=== PATIENT | female | born 1940 | race Caucasian/White ===

== ENCOUNTER 2020-03-31 16:08 | Inpatient (IN) | payer OTHER ==
[~2020-03-31] VITALS: Ht 170.2 cm; Wt 39.2 kg
--- NOTE | ~2020-03-31 | HC ---
[facility] [place] [address] CONSULTATION Name: LORELEI EVANS Room #: 446-P ADM IN M.R.#: [id number] Admission: 03/31/20 Attend Phys: Manfred Olson MD Discharge: Date of : 39 Report #: [id number] THIS REPORT FOR: cc: NORBERT - No family physician/PCP NORBERT - No family physician/PCP Ankush Coppola MD ~ CC: [facility] physician/PCP Manfred Olson DATE OF SERVICE: 04/02/2020 HISTORY OF PRESENT ILLNESS: The patient is an 80-year-old white female admitted through the Emergency Department with nausea, vomiting, was noted to have acute renal insufficiency with dehydration, failure to thrive. She had electrolyte abnormalities. Her nausea and vomiting are improved with antiemetic therapy. She was noted to have severe protein-calorie malnutrition. Geriatrics is involved. She does have premorbid dementia, but living in the community. She also has osteoporosis, insomnia. We are seeing her in rehabilitation medicine consultation. PAST MEDICAL HISTORY: Includes hypertension, hyperlipidemia, dementia, breast cancer. PAST SURGICAL HISTORY: Mastectomy. MEDICATIONS: Please see the full medication listing. FAMILY HISTORY: Unobtainable. Her code status is full. SOCIAL HISTORY: Lives with her cousin Krysten who is also durable power of assistant attorney general. This is a split level house 6+6 steps in. Premorbidly ambulated without gait aids and was independent with ADLs. REVIEW OF SYSTEMS: Denies any current complaints of chest pain, shortness of breath or abdominal discomfort. She notes that she is feeling better. Denies any current nausea or vomiting. PHYSICAL EXAMINATION: GENERAL: She is an 80-year-old thin white female in no obvious distress. VITAL SIGNS: Temperature 36.8, pulse 77, respirations 18, blood pressure 121/56. NEUROLOGIC: She is alert. She will follow basic 1 step commands without difficulty. Fair historian, but cooperative. HEENT: Facies are symmetric. [facility] [address] [place] [address] CONSULTATION Name: LORELEI EVANS Room #: 446-P ADM IN M.R.#: [id number] Admission: 03/31/20 Attend Phys: Manfred Olson MD Discharge: Date of : 39 Report #: [id number] EXTREMITIES: Functional range of motion of both upper extremities with strength grade 4-/5. DTRs are trace to 1. Lower extremities, no focal calf swelling, functional range of motion with strength grade 4-/5. DTRs are trace to 1. She is min assist with sit to stand. Gait was 200 feet min assist without an assistive device. She needs min assist for toileting, lower extremity dressing is min assist. ASSESSMENT: An 80-year-old white female with the following problem list: 1. Medical complexity with generalized debilitation. 2. Intractable nausea and vomiting. 3. Acute renal insufficiency secondary to dehydration, given IV fluids. 4. Severe protein-calorie malnutrition. 5. Failure to thrive. 6. Hypertension. 7. Hyperlipidemia. 8. Insomnia. 9. Depression. PLAN: The patient is being monitored regarding her renal insufficiency. She did have a significant increase in her creatinine, which has improved. She may be a candidate for a short acute in-hospital inpatient rehabilitation stay. We will check on bed availability and we will be glad to follow along with you. By: 1305 1833 Ankush Coppola MD /PMT
[~2020-03-31 16:08] MED LIST: AMLODIPINE BESYL5 MG PO; ULTRAM 50MG TAB50 MG PO
[2020-03-31 18:26] LABS: ABSOLUTE NEUTROPHILS 9.4 thou/uL (1.4-8.2); BASOPHILS 0.3 % (0.0-2.0); HEMATOCRIT 48.9 % (37.0-47.0); HEMOGLOBIN 16.7 gm/dL (12.0-15.0); MCH 32.3 pg (26.0-34.0); MCHC 34.2 g/dL (28.0-37.0); MCV 94.5 fL (80.0-100.0); MONOCYTES 3.8 % (1.0-8.0); PLATELET COUNT 390 thou/uL (150-400); POLYS 90.9 % (36.0-66.0); RBC 5.18 mil/uL (4.20-5.00); RDW 14.2 % (10.5-14.5); WBC 10.3 thou/uL (4.0-11.0)
[2020-03-31 18:34] LABS: CALCIUM 9.5 mg/dL (8.5-10.1); CREATININE 2.2 mg/dL (0.6-1.0)
[2020-03-31 18:42] LABS: ALBUMIN 4.8 g/dL (3.4-5.0); TOTAL BILIRUBIN 0.8 mg/dL (0.2-1.0)
[2020-03-31 19:29] LABS: URINE BILIRUBIN NEGATIVE (Negative); URINE BLOOD TRACE (Negative); URINE CLARITY CLEAR; URINE COLOR YELLOW; URINE GLUCOSE-RANDOM* TRACE (Negative); URINE KETONES NEGATIVE (Negative); URINE LEUKOCYTES-REFLEX NEGATIVE (Negative); URINE NITRITE-REFLEX NEGATIVE (Negative); URINE PROTEIN (DIPSTICK) 2+ (Negative); URINE UROBILINOGEN 0.2 E.U./dl (0.2-1.0)
[2020-03-31 19:49] LABS: BACTERIA-REFLEX 1-9 Few /HPF (None Seen); CASTS None Seen /LPF (None Seen); CRYSTALS None Seen /LPF (None Seen); SQUAMOUS 0-3 Few /LPF (0-3); URINE RBC None Seen /HPF (0-2); URINE WBC-REFLEX 0-5 Rare /HPF (0-5)
[2020-03-31 21:18] VITALS: BP 160/76
[2020-03-31 21:25] VITALS: BP 154/86
--- NOTE | 2020-03-31 21:29 | NUR ---
NOTIFIED PT IS COMING UP FOR BEDSIDE REPORT. 443 BEING CLEANED. WILL PUT PATIENT IN ROOM 447.
[2020-03-31 22:50] VITALS: BP 155/76
--- NOTE | 2020-03-31 23:55 | NUR ---
PT ARRIVED TO THE UNIT AT AROUND 2130 HRS. PT IS ALERT TO SELF. NOT MUCH OF A HISTORIAN AT ALL. PT WAS ABLE TO TELL ME SHE IS HERE BECAUSE SHE HAS LOST ALOT OF WEIGHT AND THE LADY ACROSS FROM HER HOUSE BROUGHT HER TO THE HOSPITAL.AFEBRILE. IVF INFUSING. SHE AGREES TO THE USE OF JE LIGHT. CLEARLY FORGETFUL. FALL PREC IN PLACE. WILL CALL FAMILY IN THE MORNING TO GET CONSENTS SIGNED. PT STATES SHE LIVES WITH HER SISTER IN[place]. SKIN IS INTACT. SHE REPORTS BEING CONTINENT OF BOWEL AND BLADDER. PT IS WELL KEMPT.WILL CONTINUE WITH POC TILL EOS.
[2020-04-01 05:00] VITALS: BP 156/74
[2020-04-01 05:59] LABS: HEMATOCRIT 44.2 % (37.0-47.0); MCH 32.4 pg (26.0-34.0); MCV 95.1 fL (80.0-100.0); RBC 4.65 mil/uL (4.20-5.00); RDW 13.8 % (10.5-14.5)
[2020-04-01 06:15] LABS: CALCIUM 8.8 mg/dL (8.5-10.1); CREATININE 1.4 mg/dL (0.6-1.0); MAGNESIUM 1.9 mg/dL (1.8-2.4)
[2020-04-01 07:45] VITALS: BP 143/72
--- NOTE | 2020-04-01 09:31 | EKG ---
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
--- NOTE | 2020-04-01 10:09 | NUR ---
ASSESSMENT: CM REVIEWED CHART AND ATTEMPTED TO CALL PATIENT IN THE ROOM BUT NO ANSWER. CM REACHED OUT TO JANUARY WHO IS LISTED HER CONTACT. JANUARY REPORTS SHE IS HER COUSIN/DPOA. PT LIVES IN A HOUSE WITH SILVIA. PT WAS ADMITTED DUE TO ANGEL/NAUSEA AND VOMITTING. JANUARY REPORTS THAT THEY HAVE A SPLIT LEVEL HOME WHERE THERE IS ABOUT 6 STEPS TO ENTER THROUGH THE GARAGE, 6 TO THE MAIN LEVEL, AND 6 TO THE BEDROOM. PT NORMALLY AMBULATES INDEPENDENTLY BUT SHE REPORTS THEY DO HAVE CANE AND WALKER AT HOME. PT NORMALLY IS INDEPENDENT WITH ADLS. PER JANUARY PT HAS NOT HAD HH IN THE PAST OR BEEN TO A SNF AND IS NORMALLY VERY INDEPENDENT. PT/OT WILL NEED TO SEE PATIENT AND CM WILL CONTINUE TO FOLLOW TO ASSIST NEEDED.
--- NOTE | 2020-04-01 15:37 | NUR ---
Assumed care of pt at 0700. Pt feeling weak this am. Talked to patient's family and updated on patient's status. Poor appetite. Swallow study ordered. Fluids infusing. Fall precautions in place. Will continue to monitor.
[2020-04-01 16:45] VITALS: BP 137/74
[2020-04-01 22:00] VITALS: BP 138/76
--- NOTE | 2020-04-02 03:12 | NUR ---
Care of patient assumed at 1915. Patient is sitting in recliner in her room watching TV. Pleasant and conversational. IV site intact and fluids infusing. Denies pain. Denies needs or concerns.
[2020-04-02 08:51] LABS: ALBUMIN 3.1 g/dL (3.4-5.0); CALCIUM 8.4 mg/dL (8.5-10.1); CREATININE 1.2 mg/dL (0.6-1.0); POTASSIUM 3.7 mmol/L (3.5-5.1); TOTAL BILIRUBIN 0.6 mg/dL (0.2-1.0)
[2020-04-02 11:33] VITALS: BP 121/56
--- NOTE | 2020-04-02 14:24 | NUR ---
PATIENT SEEN FOR REHAB CONSULT BY DR. CONRAD THIS DATE. PATIENT IS A CANDIDATE FOR ACUTE REHAB. FORENSIC PHOTOGRAPHER INFORMED AND WILL SPEAK WITH PATIENT'S FAMILY TO CONFIRM THEIR WISHES. PATIENT MAY BE READY FOR ADMISSION TO REHAB EARLY 04/02/20.
--- NOTE | 2020-04-02 16:03 | NUR ---
ON-GOING ASSESSMENT: CM REVIEWED CHART AND SPOKE WITH ATTENDING. 5N CONSULT WAS PLACED FOR PATIENT AND LIASON STATING PATIENT IS A GOOD CANIDATE IF AGREEABLE. CM ATTEMPTED TO REACH OUT TO PATIENT BUT NO ANSWER AT THIS TIME. CM REACHED OUT TO PATIENTS DP/JANUARY WHO REPORTS SHE IS NOT SURE THAT PATIENT NEEDS IT BUT WILL DISCUSS. CM DISCUSSED THAT PT/OT SAW PATIENT AND SHE WAS EVALUATED AND QUALIFIES IF THEY ARE WILLING. CM WILL CONTINUE TO FOLLOW.
[2020-04-02 19:45] VITALS: BP 123/65
--- NOTE | 2020-04-02 19:53 | NUR ---
PT CARE ASSUMED AT 0700. A&Ox1. PT OK PER DR. PEREA TO NOT HAVE IV IN PLACE. 24 HOUR URINE COLLECTION TO BE COMPLEETED. PT CONTINUES TO GO TO THE BATHROOM ON HER OWN WHICH MAKES IT HARD TO COLLECT. COVID TEST COMPLEETEDAND PENDING. EGD TOMORROW,NPO AT MIDNIGHT. CONSENT SIGNED AND ON THE CHART. DNR. FALL PROTOCOL IN PLACE. CT COMPLEETED. SPOKE WITH DPOA AND UPDATED. WILL CONTINUE TO MONITOR.
[2020-04-03 02:30] VITALS: BP 138/77
--- NOTE | 2020-04-03 02:47 | NUR ---
ASSUMED PT CARE AT 1900. PT IS ONLY ORIENTED TO SELF TONIGHT. COULD NOT PROVIDE WHERE SHE IS OR WHY SHE IS HERE. WHEN ASKED THE DATE, PT SAID "IT IS TWO DAYS AFTER TWO DAYS AGO." FAILS TO CALL WHEN WANTING TO USE THE BATHROOM. STEADY ON FEET TO TOILET WITH STANDBY. NO C/O NAUSEA OR VOMITING. 24 HR URINE COLLECTION STARTED TONIGHT. NO OTHER SIGNICANT CHANGES.
[2020-04-03 07:40] VITALS: BP 118/54
--- NOTE | 2020-04-03 12:37 | NUR ---
CONTINUOUS WELD PIPE MILL SUPERVISOR SPOKE WITH PATIENT'S DPOA THIS AM. JANUARY (DPOA) DOES NOT WANT PATIENT TO COME TO REHAB AND WOULD LIKE PATIENT TO DISCHARGE TO HOME. PATIENT'S THERAPY NOTES REVIEWED WITH REHAB ASSOCIATE MERCHANDISE PLANNER, HERMELINDA ARAGON. PATIENT IS DOING BETTER AND IF PATIENT DOES WELL ON STAIRS WITH PT THIS DATE, PATIENT SHOULD BE ABLE TO D/C TO HOME. INFORMATION SHARED WITH Rafael SALGUERO/Gracie HARBOUR MASTER.
--- NOTE | 2020-04-03 13:59 | NUR ---
PT CARE ASSUMED AT 0700.A&ORIENTED TO SELF. IV PATENT WITH NO REDNESS OR EDEMA, SALINE LOCKED.NPO SINCE MIDNIGHT. COVID TEST NEGATIVE. EGD PROCEDURE COMPLEETED. PER GI PT IS TO HAVE A GASTRIC SWALLOW EMPTYING STUDY TOMORROW AND NPO AT MIDNIGHT. [employer] SENT. AWAITING RESULTS. DPOA CONTINUESLY CALLS VERY AGRAVATED ABOUT HAVING TO TAKE PT HOME, MADE STATEMENT ABOUT PATENT BEING TOO MUCH WORK, AND NOT HAVING ANY FOOD AT HOME TO TAKE CARE OF THE PT. DPOA ALSO USED FOUL LANGUAGE WITH THE PACU STAFF OVER HAVING TO GET CONSENT FOR ANESTHESIA. PT BACK IN ROOM AND HAVING LUNCH. FALL PROTOCOL IN PLACE. CALL LIGHT IN REACH. WILL CONTINUE TO MONITOR.
[2020-04-03 14:55] VITALS: BP 118/54
--- NOTE | 2020-04-03 15:03 | P ---
[facility] [place] [address] PROCEDURE REPORT Name: LORELEI EVANS Room #: 446-P ADM IN M.R.#: [id number] Admission: 03/31/20 Attend Phys: Manfred Olson MD Discharge: Date of : 39 Report #: [id number] THIS REPORT FOR: cc: NORBERT - No family physician/PCP FAM - No family physician/PCP Addison Victoria MD ~ CC: [facility] physician/PCP MANFRED Olson DATE OF SERVICE: 04/03/2020 PROCEDURE PERFORMED: Upper endoscopy with biopsies. HISTORY OF PRESENT ILLNESS: The patient is an 80-year-old female with a history of dementia, fair historian with reported weight loss as well as intermittent nausea and vomiting typically after eating. The patient denies any abdominal pain or dysphagia. No history of NSAID use. No previous history of endoscopy per the patient. A CT scan of the abdomen and pelvis was essentially negative on admission yesterday. Plan is for upper endoscopy. DESCRIPTION OF PROCEDURE: The risks and benefits of the procedure were explained to the patient's durable power of county attorney, those risks including but not limited to bleeding, perforation, the risk of sedation. They understood these risks and gave informed consent. Sedation was given using propofol per Anesthesia. Next, using a standard Olympus upper endoscope, the scope was placed in the patient's mouth and advanced under direct vision through the esophagus, stomach and into the second portion of the duodenum. The larynx was normal in appearance. The esophagus was normal throughout. The GE junction was normal. Overall, there was very mild gastritis noted in the gastric body, otherwise normal. No evidence of ulcerations or erosions. The pylorus was normal and patent. Biopsies of the stomach were obtained to rule out the possibility of H. pylori. The duodenal bulb, first and second portion were all normal. Biopsies of the second portion were obtained to rule out the possibility of celiac sprue. The scope was then withdrawn and the procedure terminated. The patient tolerated the procedure well. IMPRESSION: 1. Mild gastritis. 2. Otherwise, normal upper endoscopy. RECOMMENDATIONS: 1. Await biopsy results. 2. Continue Pepcid. 3. We will proceed with a gastric emptying study tomorrow. [facility] [address] [place] [address] PROCEDURE REPORT Name: LORELEI EVANS Room #: 446-P [facility] IN M.R.#: [id number] Admission: 03/31/20 Attend Phys: Manfred Olson MD Discharge: Date of : 39 Report #: [id number] Thank you for allowing me to participate in her care. <ELECTRONICALLY SIGNED> By: Addison Victoria MD 04/03/20 1503 1336 1346 Addison Victoria MD /nt
--- NOTE | 2020-04-03 15:44 | NUR ---
ON-GOING ASSESSMENT: BEBO SPOKE WITH BEDSIDE RN. PT HAD EGD AND PLANS FOR GASTRIC EMPTYING STUDY TO BE DONE TOMORROW. NO PLANS FOR DISCHARGE TODAY. BEBO NOTIFIED [facility]. BEBO ALSO ATTEMPTED TO CALL SILVIA.
[2020-04-03 16:10] VITALS: BP 118/90
[2020-04-03 19:52] VITALS: BP 122/59
--- NOTE | 2020-04-04 01:27 | NUR ---
ASSUMED PT CARE AT 1900. PT IS PLESANTLY CONFUSED. ONLY ORIENTED TO SELF. FORGETS TO CALL FOR HELP TO THE BATHROOM. STEADY ON FEET. NO REPORTS NO N/V OR PAIN. NPO SINCE MIDNIGHT FOR PROCEDURE THIS AM. CURRENTLY RESTING IN BED IWTH EYES CLOSED, WILL CONTINUE TO MONITOR.
[2020-04-04 05:33] VITALS: BP 114/47
--- NOTE | 2020-04-04 08:35 | NUR ---
ASSUMED CARE OF PATIENT AT 0800. ASSESSMENT CHARTED. MEDICATIONS HELP PER NPO STATUS. PATIENT A&O TO HERSELF AND SLEEPY. INFORMED ABOUT PROCEDURE THIS MORNING AND COMPLIANT. VSS. OFF UNIT AT 0832 FOR GASTRIC EMPTYING STUDY.
[2020-04-04 08:37] VITALS: BP 129/60
[2020-04-04 09:19] VITALS: BP 127/66
[2020-04-04 10:17] VITALS: BP 118/54
--- NOTE | 2020-04-04 10:18 | NUR ---
ON-GOING ASSESSMENT: BEBO REVIEWED CHART. PT DID NOT DISCHARGE YESTERDAY DUE TO GI SEEING PATIENT AND SHE IS GETTING A GASTRIC EMPTYING STUDY COMPLETED TODAY. BEBO SPOKE WITH 5N LIASON WHO REPORTS PATIENT IS HIGH LEVEL AND NEAR BASELINE SO FEEL SHE IS OK TO GO HOME WITH HOME HEALTH. BEBO DISCUSSED WITH PATIENTS DPOA/COUSIN SILVIA WHO REPORTS SHE DOES NOT WANT HER GOING TO 5[facility] AND WANTS HER TO COME HOME. CM DISCUSSED HOME HEALTH CARE WITH HER AND SHE IS AGREEABLE WITH REFERRAL TO [facility] AND THEM SEEING PATIENT IF NEEDED. BEBO NOTIFIED [facility] AND NOTIFIED THAT HER PCP IS DR. SHASHI KESSLER. PLANS ARE FOR PATIENT TO GO HOME WITH [facility] AT DISCHARGE. [facility] HH:[phone] [facility] FAX:[phone]
--- NOTE | 2020-04-04 16:06 | PATH ---
[facility] [address] [address] PATHOLOGY RPT PROCEDURE Name: LORELEI EVANS Sydnee Room #: 446-P ADM IN M.R.#: [id number] Admission: 03/31/20 Date of : 39 Discharge: Report #: [id number] Path Case #: [id number] [facility] Accession Number: [id number] . 01 Material submitted: . PART A: duodenum - BX OF DUODENUM PART B: stomach - BX OF GASTRITIS . 01 Clinical history: . A. R/O sprue due to weight loss B. R/O H. pylori ANGEL, nausea and vomiting . 02 Diagnosis: A. Small bowel mucosa, duodenum, rule out sprue, endoscopic biopsy: - No diagnostic abnormalities present. - Negative for villous blunting or increase in intraepithelial lymphocytes. . B. Gastric mucosa, gastritis, endoscopic biopsy: - Mild chronic gastritis. - Negative for intestinal metaplasia or atrophy. - Negative for Helicobacter pylori (properly-controlled immunohistochemical stain performed). . (IUV:mml; 04/04/2020) QLM 04/04/2020 1347 Local . 02 Electronically signed: . Alla Quintero MD, Pathologist NPI- [id number] . 01 Gross description: . A. The specimen is received in formalin, labeled "[place], biopsy of duodenum, R/O sprue". Received are four segments of pale whipple soft tissue ranging in size from 0.2 to 0.7 cm in maximum dimensions. The specimen is submitted entirely in cassette A1. . B. The specimen is received in formalin, labeled "[place], biopsy of gastritis, R/O H. pylori". Received are four segments of pale whipple soft tissue ranging in size from 0.2 to 0.7 cm in maximum dimensions. The specimen is submitted entirely in cassette B1. (CAA; 04/03/2020) QA/QA 04/03/2020 1810 Local . 02 Pathologist provided ICD-10: K29.50, R11.[address] [address] PATHOLOGY RPT PROCEDURE Name: BRIGHT EVANSSTEVEN Randhawa Room #: 446-P ADM IN M.R.#: [id number] Admission: 03/31/20 Date of : 39 Discharge: Report #: [id number] Path Case #: [id number] . 02 CPT . [id number], [id number], [id number] Specimen Comment: A courtesy copy of this report has been sent to [phone], [phone] Specimen Comment: [phone] Specimen Comment: Report sent to / Performed at: [address], [place] [id number] MD Favian Kim MD Phone: [phone] Performed at: [address] [id number] MD Alla Quintero MD Phone: [phone]
[2020-04-04] MEDS ORDERED: ACETAMINOPHEN325 M1 PO (17:02)
[2020-04-04] MEDS ORDERED: PEPCID20 MG PO (17:02)
[2020-04-04] MEDS ORDERED: ZOFRAN ODT4 MG DISSOLVE (17:02)
[2020-04-04] MEDS ORDERED: VITAMIN D310 MC1 PO (17:02)
--- NOTE | 2020-04-04 17:52 | NUR ---
PATIENT LEFT UNIT AT APPROX. 1730. IV DISCONTINUED. ASSESSMENT UNCHANGED/STABLE. INSTRUCTIONS SENT HOME W/ PATIENT AND FRIEND.
--- NOTE | 2020-04-07 16:09 | NUR ---
SW received call from Jethro at [facility] stating they did not receive pt's discharge orders/summary. Pt was discharged on 04/04 with orders for . SW faxed and confirmed info was received. No additional SW needs identified at this time, but is available to assist should needs arise.
== END 2020-04-04 17:30 | disposition home health service (06) | DRG 682 ==
LOC: ER 16:08 → 4S 19:13 → EROBS 19:13 → 4S 21:23
PROVIDERS: Emergency Medicine; Nurse Practitioner Family; ADMIT Internal Medicine; ATTEND Internal Medicine
PROC: 0DB68ZX Excision of Stomach, Via Natural or Artificial Opening Endoscopic, Diagnostic (ICD-10-PCS; principal; 2020-04-03)
PROC: 0DB98ZX Excision of Duodenum, Via Natural or Artificial Opening Endoscopic, Diagnostic (ICD-10-PCS; principal; 2020-04-03)
DX: N17.9 Acute kidney failure, unspecified (principal); E43 Unspecified severe protein-calorie malnutrition; Z68.1 Body mass index [BMI] 19.9 or less, adult; K29.70 Gastritis, unspecified, without bleeding; E86.0 Dehydration; G30.9 Alzheimer's disease, unspecified; F02.80 Dementia in other diseases classified elsewhere, unspecified severity, without behavioral disturbance, psychotic disturbance, mood disturbance, and anxiety; I10 Essential (primary) hypertension; E78.5 Hyperlipidemia, unspecified; R62.7 Adult failure to thrive; G47.00 Insomnia, unspecified; F32.9 Major depressive disorder, single episode, unspecified; M81.0 Age-related osteoporosis without current pathological fracture; Z66 Do not resuscitate; Z20.828 Contact with and (suspected) exposure to other viral communicable diseases; Z85.3 Personal history of malignant neoplasm of breast; Z90.10 Acquired absence of unspecified breast and nipple; Z87.891 Personal history of nicotine dependence; Z79.899 Other long term (current) drug therapy
CPT/HCPCS: 10195; 62110; 62900; 70005